=== PATIENT | female | born 1960 | race Caucasian/White ===

== ENCOUNTER 2021-05-04 15:06 | Emergency (ER) | payer SELFPAY ==
--- NOTE | 2021-05-04 15:08 | ED_ITS ---
HPI - General Adult General: Chief complaint: Chest Pain Stated complaint: FEELS THROAT CLOSING, PAIN IN ESOPHAGUS Time Seen by Provider: 05/04/21 15:08 History of Present Illness: HPI narrative: Ms. Luo is a 61-year-old lady with history of hypertension presents emerged department due to throat and chest pain. She reports symptom onset 2 weeks ago, she was eating at a [place] restaurant and had a chip in her mouth when she left. She felt immediate pain in her throat while swallowing. She was able to tolerate liquids and after eating solids felt like this past however her symptoms have largely continued. She describes sharp anterior chest and throat pain. In addition she feels sore throat. She presents today due to generalized malaise, diarrhea, and worsening pain. Pain is now moderate to severe intensity. 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 Denies similar episodes in the past. No other specific exacerbating or relieving factors, no other specific changes in health identified. Review of Systems General: Reports: 10 or more systems reviewed and unremarkable except in HPI and below Physical Exam Narrative: EXAM NARRATIVE: GENERAL/CONSTITUTIONAL -nontoxic-appearing. Uncomfortable Eyes -no scleral icterus, no conjunctival injection ENMT - Atraumatic external nose and ears. Mild pharyngeal erythema. No evidence of Ludewig's or other significant intraoral pathology. Moist mucous membranes NECK - supple. trachea midline CARDIOVASCULAR - regular rate and rhythm. RESPIRATORY -clear to auscultation bilaterally. ABDOMEN/GI - Nontender/Nondistended. MSK - Extremities without obvious deformity or tenderness to palpation SKIN - Warm, Dry NEURO - alert and appropriately oriented. Moves all extremities equally. Course ED course: - Patient was seen and evaluated by me at bedside - Patient placed on cardiac monitors, IV access obtained - Initial evaluation notable for exam as noted above, no obvious examination cause of patient's symptoms. -Symptom treatment ordered - Labs notable for no leukocytosis, no significant metabolic abnormality to explain patient's symptoms. Rapid strep negative. - Given duration of symptoms and reported chest pain associated with it imaging warranted. imaging notable for no acute abnormality to explain patient's c ontinued symptoms. - Upon serial reexamination after treatment the patient was mildly improved however still symptomatic - Based on patient history, evaluation, labs, and imaging as interpreted the mo st likely cause of the patient's condition is unclear, would be extremely atypical of cardiac chest pain and further inpatient evaluation not warranted at this time. Delta troponin negative with 2 weeks of symptoms. Patient does have a history of Solares's esophagus and I did recommend EGD in the outpatient setting - The results of ED evaluation were discussed with the patient including prescriptions and/or symptomatic cares (if applicable) including appropriate and responsible use, followup plan, and return precautions. The patient verbalized understanding and felt safe for discharge. - Patient discharged in satisfactory condition. Vital Signs: Vital signs: Vital Signs Temperature 98.6 F 05/04/21 15:09 Pulse Rate 91 05/04/21 19:18 Respiratory Rate 18 05/04/21 19:18 Blood Pressure 144/78 05/04/21 19:18 Pulse Oximetry 99 05/04/21 19:18 MDM - General Adult Medical Records: Attestation: I reviewed the patient's medical records. Lab Data: Attestation: I reviewed the patient's lab results. Labs: Lab Results 05/04/21 05/04/21 05/04/21 15:14 15:14 15:14 WBC 8.8 10^3/uL 10^3/ uL (4.0-10.0) RBC 4.61 10^6/uL 10^6 /uL (4.1-5.3) Hgb 15.3 g/dL g/dL (11.5-15.3) Hct 44.2 % % (37.0-47.0) MCV 95.9 fl fl (81-99) MCH 33.2 pg pg (28.0-34.0) MCHC 34.6 g/dL g/dL (30.0-36.0) RDW 11.9 % L % (12.1-15.1) Plt Count 227 10^3/cmm 10^3 /cmm (130-400) MPV 12.0 fL H fL (7.4-10.4) Neut % (Auto) 62.4 % % Lymph % (Auto) 29.5 % % Henderson % (Auto) 6.4 % % Eos % (Auto) 0.8 % % Baso % (Auto) 0.7 % % Neut # (Auto) 5.46 10^3/uL 10^3 /uL (1.8-7.7) Lymph # (Auto) 2.6 10^3/uL 10^3/ uL (0.8-4.8) Henderson # (Auto) 0.6 10^3/uL 10^3/ uL (0.2-0.9) Eos # (Auto) 0.1 10^3/uL 10^3/ uL (0.0-0.8) Baso # (Auto) 0.1 10^3/uL 10^3/ uL (0.0-0.1) Nucleated RBC % (a uto) 0 % % Nucleated RBCs # 0.0 /100WBC /100W BC Sodium 139 mmol/L mmol/L (136-145) Potassium 3.9 mmol/L mmol/L (3.5-5.1) Chloride 99 mmol/L mmol/L (98-107) Carbon Dioxide 25 mmol/L mmol/L (22-29) Anion Gap 18.9 (5-19) BUN 12 mg/dL mg/dL (6-20) Creatinine 0.5 mg/dL mg/dL (0.5-0.9) GFR Calculation 126.3 mL/min mL/m in (90-130) Glucose 186 mg/dL H mg/dL (65-115) Calculated Osmolal ity 293 mOsm/kg mOsm/ kg (285-295) Calcium 10.4 mg/dL mg/dL (8.5-10.5) Total Bilirubin 0.3 mg/dL mg/dL (0.15-1.2) AST 15 U/L U/L (0-32) ALT 14 U/L U/L (0-33) Alkaline Phosphata se 135 IU/L H IU/L (35-105) Troponin T Baselin e 6 ng/L ng/L (0-10) Troponin T 120 Min rufina Delta Troponin T Total Protein 7.8 g/dL g/dL (6.6-8.7) Albumin 4.4 g/dL g/dL (3.5-5.2) Globulin 3.4 g/dL g/dL (1.3-4.6) Lipase 36 U/L U/L (13-60) Group A Strep Rapi d 05/04/21 05/04/21 15:41 17:33 WBC RBC Hgb Hct MCV MCH MCHC RDW Plt Count MPV Neut % (Auto) Lymph % (Auto) Henderson % (Auto) Eos % (Auto) Baso % (Auto) Neut # (Auto) Lymph # (Auto) Henderson # (Auto) Eos # (Auto) Baso # (Auto) Nucleated RBC % (a uto) Nucleated RBCs # Sodium Potassium Chloride Carbon Dioxide Anion Gap BUN Creatinine GFR Calculation Glucose Calculated Osmolal ity Calcium Total Bilirubin AST ALT Alkaline Phosphata se Troponin T Baselin e Troponin T 120 Min rufina 6.98 ng/L ng/L (0-10) Delta Troponin T 0.98 ABS# ABS# (0-10) Total Protein Albumin Globulin Lipase Group A Strep Rapi d Negative (Negative) EKG Data^: EKG 1: Attestation: I personally reviewed and interpreted this EKG as follows: EKG interpretation date: 05/04/21 EKG interpretation time: 15:27 Interpretation: Twelve-lead EKG shows a regular rhythm at a rate of 65. 159 WI interval, 85 QRS duration, 429 QTc. Normal axis. Interpretation: Sinus rhythm. Computer generated interpretation: Chest X-Ray 05/04/21 15:30 Impression: Atherosclerosis and hyperinflation. Neck CT 05/04/21 16:47 IMPRESSION: No acute findings. Radiation Dose CTDIVOL = (mGy): DLP = 537.08 (mGy-cm) Discharge Plan Discharge Patient Disposition: Home Clinical Impression: Chest pain, Pain of esophagus Condition: Stable Prescriptions: New ondansetron 4 mg tablet,disintegrating 4 mg PO TID PRN (Reason: nausea and vomiting) Qty: 14 RF: 0 Discharge Orders: Discharge ED (Routine); Ordered 05/04/21 Ordered By: Refugio Champion Discharge Diet: Usual diet Discharge Activity: Resume usual activity Patient Instructions: Chest Pain (ED), Viral Syndrome (ED) Activity Restrictions/Additional Instructions: Thank you for visiting the emergency department. You were seen and evaluated for chest pain in addition to throat pain and generalized malaise. The exact cause of your symptoms is unclear and no significant abnormality was identified on labs or imaging today. It is possible that you still have mild irritation from the chip. You may use [id number] medications for symptoms however please do not exceed the daily recommended dosage. Please follow-up with your primary care provider and clipper counters, you l ikely need a repeat EGD. Please return to the emergency department for worsening symptoms or anything else that you are concerned about and feel needs emergency department evaluation. Coding Level of Care Code ED Buffet Attendant for Brett Herrmann
[2021-05-04 15:09] VITALS: BP 158/88; PULSE 70; RESP 20; TEMP 37; O2SAT 97; BMI 25.7
--- NOTE | 2021-05-04 15:30 | ECG_ITS ---
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 Measurements Intervals [place] Rate: 65 P: -1 WI: 159 QRS: 33 QRSD: 85 T: 31 QT: 417 QTc: 435 Interpretive Statements SINUS RHYTHM No previous ECG available for comparison Electronically Signed On 05-04-2021 22:45:49 [employer] FARMER by Tomy Simpson M.D. [email or web address]
--- NOTE | 2021-05-04 15:30 | XR_ITS ---
WS: [id number] Portable AP upright chest, 05/04/2021 Clinical Data: chest pain Comparison: None. Findings: No nodules, masses or effusions are seen. The heart is normal. The pulmonary vascularity is not increased. No pneumonia or pneumothorax is seen. The aortic arch shows tortuosity. The diaphragm s are flattened. XR/XR chest 1V portable [id number] Impression: Atherosclerosis and hyperinflation.
[2021-05-04 15:37] LABS: Basophils # 0.1 10^3/uL (0.0-0.1); Basophils % 0.7 %; Eosinophils # 0.1 10^3/uL (0.0-0.8); Eosinophils % 0.8 %; Hematocrit 44.2 % (37.0-47.0); Hemoglobin 15.3 g/dL (11.5-15.3); Lymphocytes # 2.6 10^3/uL (0.8-4.8); Lymphocytes % 29.5 %; Mean Corpuscular HGB Conc 34.6 g/dL (30.0-36.0); Mean Corpuscular Hemoglobin 33.2 pg (28.0-34.0); Mean Corpuscular Volume 95.9 fl (81-99); Monocytes # 0.6 10^3/uL (0.2-0.9); Monocytes % 6.4 %; Neutrophils # 5.46 10^3/uL (1.8-7.7); Neutrophils % 62.4 %; Nucleated Red Blood Cells % 0 %; Platelet Count 227 10^3/cmm (130-400); Red Blood Count 4.61 10^6/uL (4.1-5.3); Red Cell Distribution Width 11.9 % (12.1-15.1); White Blood Count 8.8 10^3/uL (4.0-10.0)
[2021-05-04] MEDS: lidocaine 2% viscous 15 ML, aluminum-mag hydrox-simethicon 30 ML, sucralfate oral liq 1 GM PO (15:38)
[2021-05-04 16:21] LABS: Troponin(5th) Baseline 6 ng/L (0-10)
[2021-05-04 16:22] LABS: Alanine Aminotransferase 14 U/L (0-33); Albumin Level 4.4 g/dL (3.5-5.2); Alkaline Phosphatase 135 IU/L (35-105); Anion Gap 18.9 (5-19); Aspartate Amino Transferase 15 U/L (0-32); Blood Urea Nitrogen 12 mg/dL (6-20); Calcium 10.4 mg/dL (8.5-10.5); Carbon Dioxide 25 mmol/L (22-29); Chloride 99 mmol/L (98-107); Globulin 3.4 g/dL (1.3-4.6); Glomerular Filtration Rate 126.3 mL/min (90-130); Glucose 186 mg/dL (65-115); Lipase 36 U/L (13-60); Osmolality Calculated 293 mOsm/kg (285-295); Potassium 3.9 mmol/L (3.5-5.1); Sodium 139 mmol/L (136-145); Total Bilirubin 0.3 mg/dL (0.15-1.2); Total Protein 7.8 g/dL (6.6-8.7)
[2021-05-04 16:43] LABS: Rapid Strep A Test Negative (Negative)
--- NOTE | 2021-05-04 16:47 | CTR_ITS ---
PROCEDURE INFORMATION: Exam: CT Neck With Contrast Exam date and time: 05/04/2021 4:47 PM Age: 61 years old Clinical indication: Neck pain; Additional info: Left neck pain, choking sensation TECHNIQUE: Imaging protocol: Computed tomography images of the neck with contrast. Radiation optimization: All CT scans at this facility use at least one of these dose optimization techniques: automated exposure control; mA and/or kV adjustment per patient size (includes targeted exams where dose is matched to clinical indication); or iterative reconstruction. Contrast material: OMNI 300; Contrast volume: 95 ml; Contrast route: INTRAVENOUS (IV); COMPARISON: CR XR chest 1V portable [id number] 05/04/2021 3:48 PM RADIATION DOSE METRICS: Total DLP (mGy-cm): 537.08 FINDINGS: Nasopharynx: Unremarkable. Oropharynx: Unremarkable. No significant tonsillar enlargement. Hypopharynx: Unremarkable. Larynx: Unremarkable. Normal epiglottis. Retropharyngeal space: Unremarkable. Submandibular/Parotid glands: Normal. Glands are normal in size. Thyroid: Normal. No enlarged or calcified nodules. Lymph nodes: Unremarkable. No lymphadenopathy. Trachea: Visualized trachea is unremarkable. Lungs: Mild paraseptal emphysematous changes at the lung apices. Bones/joints: No acute fracture. Soft tissues: Unremarkable. No significant soft tissue swelling. CT/CT neck w con* [id number] IMPRESSION: No acute findings. Radiation Dose CTDIVOL = (mGy): DLP = 537.08 (mGy-cm)
[2021-05-04] MEDS: iohexol 300 mg/mL 100 mL Btl IV (17:01)
[2021-05-04 17:27] VITALS: BP 146/79; PULSE 54; RESP 18; O2SAT 98
[2021-05-04 18:25] LABS: Troponin 5 2HR 6.98 ng/L (0-10); Troponin 5 2HR Delta 0.98 ABS# (0-10)
[2021-05-04 19:18] VITALS: BP 144/78; PULSE 91; RESP 18; O2SAT 99
== END 2021-05-04 19:19 | disposition home or self-care (01) ==
PROVIDERS: Emergency Provider Emergency Medicine
DX: R07.9 Chest pain, unspecified (principal); R07.0 Pain in throat
CPT/HCPCS: 70491; 71045; 80053; 83690; 84484; 85025; 87081; 87880; 93005; 99283; Q9967